=== PATIENT | female | born 1965 | race Caucasian/White ===

== ENCOUNTER 2017-11-30 07:23 | Day surgery (SDC) | payer MEDICARE, OTHER ==
[~2017-11-30 07:23] MED LIST: PROPOFOL INJ 200 MG/20 ML VIAL IV ONE
[2017-11-30 09:01] VITALS: BP 137/76
--- NOTE | 2017-11-30 14:32 | Operative Report ---
Operative Report DATE OF SURGERY: 11/30/17 Operative Report: The risks, benefits and alternatives of the procedure including risks of bleeding, perforation requiring surgery are explained to the patient in detail and informed consent was obtained. Patient was taken back to the endoscopy suite and placed in a left, lateral decubital position. Timeout was called. Propofol medications administered. A rectal examination is done which did not reveal any masses, tears or fissures. An Olympus videoscope was inserted into the patient's rectum. The scope was then carefully advanced all the way to the cecum. The cecum was identified by the usual anatomical landmarks including the ileocecal valve as well as the appendiceal office. Photodocumentation was obtained. The scope was then sequentially pulled back via the various segments of the colon including the ascending colon, hepatic flexure, transverse colon, splenic flexure, descending colon and finding to the rectosigmoid portions of the colon. Retroflexion maneuvers performed. PREOPERATIVE DIAGNOSIS: Colorectal cancer screening. POSTOPERATIVE DIAGNOSIS: Deep intubation of the cecum could not be performed. Mild right-sided inflammation status post biopsy rule out lymphocytic, microscopic, collagenous colitis. Internal hemorrhoids. Redundancy of colon OPERATION: Colonoscopy with biopsy SURGEON: LATA CALLAHAN ANESTHESIA: LMAC TISSUE REMOVED OR ALTERED: As noted above. COMPLICATIONS: None. ESTIMATED BLOOD LOSS: None. INTRAOPERATIVE FINDINGS: As noted above. PROCEDURE: Patient tolerated procedure well. No immediate postprocedure complications are noted. Patient discharged in good condition. Discharge date 11/30/2017. Discharge diet: Regular. Discharge activity: Regular. 2-3 week follow-up to discuss findings. Patient is instructed call the office or proceed to the emergency room should there be any further problems or questions. We will wait on pathology. 5-7 year surveillance colonoscopy.
== END 2017-11-30 09:05 | disposition home or self-care (01) ==
LOC: END 07:23
PROVIDERS: ATTEND Internal Medicine Gastroenterology
PROC: 0DBF8ZX Excision of Right Large Intestine, Via Natural or Artificial Opening Endoscopic, Diagnostic (ICD-10-PCS; principal; 2017-11-30 08:00)
DX: Z12.11 Encounter for screening for malignant neoplasm of colon (principal); K52.9 Noninfective gastroenteritis and colitis, unspecified; K64.8 Other hemorrhoids; E78.2 Mixed hyperlipidemia; I10 Essential (primary) hypertension; E11.9 Type 2 diabetes mellitus without complications; E66.01 Morbid (severe) obesity due to excess calories; Z68.41 Body mass index [BMI] 40.0-44.9, adult; Z87.891 Personal history of nicotine dependence; Z79.51 Long term (current) use of inhaled steroids; Z79.899 Other long term (current) drug therapy; Z68.38 Body mass index [BMI] 38.0-38.9, adult; Z79.4 Long term (current) use of insulin
CPT/HCPCS: 45380; 88305 ×2; J2704; 812

== ENCOUNTER 2018-12-23 14:56 | Emergency (ER) | payer MEDICARE, OTHER ==
[2018-12-23 15:49] VITALS: BP 165/74
[2018-12-23] MEDS ORDERED: NORMAL SALINE 1000 ML 1,000 ML IV ONE (16:57)
--- NOTE | 2018-12-23 16:58 | ER Document Report ---
ED Medical Screen (RME) - General Chief Complaint: Abdominal Pain Stated Complaint: FALL/WRIST PAIN Time Seen by Provider: 12/23/18 16:49 Primary Care Provider: BROOK CROCKER MD [Primary Care Provider] - Follow up as needed TRAVEL OUTSIDE OF THE [place] IN LAST 30 DAYS: No - HPI Notes: 12/23/18 17:06 53-year-old female presents to the ED for complaints of right upper quadrant abdominal pain that has been occurring recently for the last week and has radiated to her back. has had episodes of nausea and did vomit once. last bowel movement was yesterday. Patient reports she did have a gastric sleeve done a year ago in [place], [place]. Denies any fevers or chills. cholecystectomy x8 years ago. Patient reports she fell 4 days ago, injured her right wrist. has not tried anything [id number] for pain. pain with flexion of wrist. Is a patient of Dr. Crocker at [facility] I have greeted and performed a rapid initial assessment of this patient. A comprehensive ED assessment and evaluation of the patient, analysis of test results and completion of medical decision making process will be conducted by an additional ED providers. - Related Data Allergies/Adverse Reactions: No Known Drug Allergies Allergy (Verified 11/30/17 07:13) Past Medical History - Past Medical History Cardiac Medical History: Reports: Hx Hypercholesterolemia, Hx Hypertension - MEDS Denies: Hx Coronary Artery Disease, Hx Heart Attack Pulmonary Medical History: Reports: Hx Asthma - FLARE UPS WHEN SICK, NO REGULAR MEDS Denies: Hx Bronchitis, Hx COPD, Hx Pneumonia, Hx Tuberculosis Neurological Medical History: Denies: Hx Cerebrovascular Accident, Hx Seizures Endocrine Medical History: Reports: Hx Diabetes Mellitus Type 2 Renal/ Medical History: Reports: Hx Kidney Stones Musculoskeltal Medical History: Reports Hx Arthritis - RA- GENERALIZED, Reports Hx Musculoskeletal Deformity, Reports Hx Musculoskeletal Trauma Psychiatric Medical History: Reports: Hx Anxiety, Hx Depression Past Surgical History: Reports: Hx Cardiac Catheterization, Hx Section - x 5, Hx Cholecystectomy, Hx Gastric Bypass Surgery - gastric sleeve, Hx Hysterectomy. Denies: Hx Pacemaker - Immunizations Immunizations up to date: No Hx Diphtheria, Pertussis, Tetanus Vaccination: No Influenza Administration Date for 07/2017 - 12/2017 Season: 07/06/17 Physical Exam - Vital signs Vitals: Temp Pulse Resp BP Pulse Ox 98.1 F 51 L 20 165/74 H 93 12/23/18 15:48 12/23/18 15:48 12/23/18 15:48 12/23/18 15:48 12/23/18 15:48 - Abdominal Tenderness: Tender - RUQ, no cva tenderness bilat - Extremities Wrist: Tender - medial aspect, + snuffbox tenderness Course - Vital Signs Vital signs: Temp Pulse Resp BP Pulse Ox 98.1 F 51 L 20 165/74 H 93 12/23/18 15:48 12/23/18 15:48 12/23/18 15:48 12/23/18 15:48 12/23/18 15:48 Doctor's Discharge - Discharge Referrals: BROOK CROCKER MD [Primary Care Provider] - Follow up as needed
--- NOTE | 2018-12-23 17:39 | RADIOLOGY REPORT (SQ) ---
EXAM DESCRIPTION: WRIST RIGHT 3 VIEWS COMPLETED DATE/TIME: 12/23/2018 5:21 pm REASON FOR STUDY: fell on R wrist x 4 days ago diffuse right wrist pain COMPARISON: None. NUMBER OF VIEWS: Three views. TECHNIQUE: AP, lateral, and oblique radiographic images acquired of the right wrist. LIMITATIONS: None. FINDINGS: MINERALIZATION: Normal. BONES: No acute fracture or dislocation. No worrisome bone lesions. Normal alignment. SOFT TISSUES: No soft tissue swelling. No foreign body. OTHER: No other significant finding. IMPRESSION: NEGATIVE STUDY OF THE RIGHT WRIST. NO RADIOGRAPHIC EVIDENCE OF ACUTE INJURY. TECHNICAL DOCUMENTATION: JOB ID: [id number] [employer]- All Rights Reserved Reading location - IP/workstation name: [email or web address]
[2018-12-23 18:18] LABS: ABSOLUTE BASOPHILS # (AUTO) 0.1 10^3/uL (0.0-0.2); ABSOLUTE EOSINOPHILS # (AUTO) 0.3 10^3/uL (0.0-0.6); ABSOLUTE LYMPHOCYTES (AUTO) 3.3 10^3/uL (0.5-4.7); ABSOLUTE MONOCYTES (AUTO) 0.6 10^3/uL (0.1-1.4); ABSOLUTE NEUT (AUTO) 4.8 10^3/uL (1.7-8.2); BASOPHILS % (AUTO) 0.7 % (0-2); EOSINOPHILS % (AUTO) 3.5 % (0-6); HEMATOCRIT 42.6 % (36.0-47.0); HEMOGLOBIN 14.7 g/dL (12.0-15.5); LYMPHOCYTES % (AUTO) 36.2 % (13-45); MEAN CORPUSCULAR HEMOGLOBIN 31.4 pg (27.0-33.4); MEAN CORPUSCULAR HGB CONC 34.5 g/dL (32.0-36.0); MEAN CORPUSCULAR VOLUME 91 fl (80-97); MONOCYTES % (AUTO) 6.9 % (3-13); PLATELET COUNT 232 10^3/uL (150-450); RED BLOOD COUNT 4.68 10^6/uL (3.72-5.28); RED CELL DISTRIBUTION WIDTH 13.2 % (11.5-14.0); SEGMENTED NEUTROPHILS % (AUTO) 52.7 % (42-78); TOTAL CELLS COUNTED % (AUTO) 100 %; WHITE BLOOD COUNT 9.2 10^3/uL (4.0-10.5)
[2018-12-23 18:29] LABS: APPEARANCE,URINE SLIGHTLY-CLOUDY; BILIRUBIN,URINE NEGATIVE (NEGATIVE); COLOR,URINE YELLOW; GLUCOSE, URINE NEGATIVE (NEGATIVE); KETONES,URINE NEGATIVE (NEGATIVE); LEUKOCYTE ESTERASE,URINE SMALL (NEGATIVE); NITRITE,URINE NEGATIVE (NEGATIVE); PROTEIN,URINE NEGATIVE (NEGATIVE); URINE SPECIFIC GRAVITY 1.019
[2018-12-23 18:36] LABS: ALANINE AMINOTRANSFERASE 31 U/L (9-52); ALBUMIN 4.5 g/dL (3.5-5.0); ALKALINE PHOSPHATASE 65 U/L (38-126); ANION GAP 9 (5-19); ASPARTATE AMINO TRANSFERASE 22 U/L (14-36); BILIRUBIN,DIRECT 0.2 mg/dL (0.0-0.4); BILIRUBIN,TOTAL 0.7 mg/dL (0.2-1.3); BLOOD UREA NITROGEN 16 mg/dL (7-20); CALCIUM 10.4 mg/dL (8.4-10.2); CARBON DIOXIDE 30 mmol/L (22-30); CHLORIDE 103 mmol/L (98-107); GLUCOSE 84 mg/dL (75-110); LIPASE 138.1 U/L (23-300); POTASSIUM 4.3 mmol/L (3.6-5.0); SODIUM 141.9 mmol/L (137-145); TOTAL PROTEIN 7.7 g/dL (6.3-8.2)
--- NOTE | 2018-12-23 19:29 | RADIOLOGY REPORT (SQ) ---
EXAM DESCRIPTION: U/S ABDOMEN LIMITED W/O DOP COMPLETED DATE/TIME: 12/23/2018 7:17 pm REASON FOR STUDY: RUQ abd tenderness with n/v COMPARISON: None. TECHNIQUE: Dynamic and static grayscale images acquired of the abdomen and recorded on PACS. Additio nal selected color Doppler and spectral images recorded. LIMITATIONS: None. FINDINGS: PANCREAS: Head and body normal. Tail was not well seen. LIVER: No masses. Echotexture normal. LIVER VASCULATURE: Normal directional flow of the main portal vein and hepatic veins. GALLBLADDER: Surgically absent. ULTRASOUND-DETECTED MEREDITH'S SIGN: Not applicable. INTRAHEPATIC DUCTS AND COMMON DUCT: CBD 7 mm, intrahepatic ducts normal caliber. No filling defects. INFERIOR VENA CAVA: Not imaged. AORTA: No aneurysm. RIGHT KIDNEY: Normal size 9.1 cm. Normal echogenicity. No solid or suspicious masses. No hydronephro sis. No calcifications. PERITONEAL AND RIGHT PLEURAL SPACE: No ascites or effusions. OTHER: No other significant findings. IMPRESSION: Normal postcholecystectomy ultrasound of the right upper quadrant. TECHNICAL DOCUMENTATION: JOB ID: [id number] [employer]- All Rights Reserved Reading location - IP/workstation name: [email or web address]
--- NOTE | 2018-12-23 19:48 | ER Document Report ---
ED General - General Chief Complaint: Abdominal Pain Stated Complaint: FALL/WRIST PAIN Time Seen by Provider: 12/23/18 16:49 Primary Care Provider: BROOK CROCKER MD [Primary Care Provider] - Follow up as needed Mode of Arrival: Ambulatory Information source: Patient TRAVEL OUTSIDE OF THE [place] IN LAST 30 DAYS: No - HPI Patient complains to provider of: Right wrist injury, abdominal tearing sensation Onset: Last week Onset/Duration: Sudden Severity: Moderate Pain Level: 3 Associated symptoms: None Exacerbated by: Movement Relieved by: Denies Similar symptoms previously: No Recently seen / treated by doctor: No Notes: 53-year-old female here with right wrist injury. Had a fall onto outstretched hand today. She has been having some tearing left-sided abdominal pain which is not accompanied by fever or vomiting. No diarrhea. - Related Data Allergies/Adverse Reactions: No Known Drug Allergies Allergy (Verified 11/30/17 07:13) Past Medical History - General Information source: Patient - Social History Smoking Status: Current Every Day Smoker Chew tobacco use (# tins/day): No Frequency of alcohol use: None Drug Abuse: None Family History: None, Reviewed & Not Pertinent, Hypertension Patient has suicidal ideation: No Patient has homicidal ideation: No - Past Medical History Cardiac Medical History: Reports: Hx Hypercholesterolemia, Hx Hypertension - MEDS Denies: Hx Coronary Artery Disease, Hx Heart Attack Pulmonary Medical History: Reports: Hx Asthma - FLARE UPS WHEN SICK, NO REGULAR MEDS Denies: Hx Bronchitis, Hx COPD, Hx Pneumonia, Hx Tuberculosis Neurological Medical History: Denies: Hx Cerebrovascular Accident, Hx Seizures Endocrine Medical History: Reports: Hx Diabetes Mellitus Type 2 Renal/ Medical History: Reports: Hx Kidney Stones. Denies: Hx Peritoneal Dialysis Musculoskeletal Medical History: Reports Hx Arthritis - RA- GENERALIZED, Reports Hx Musculoskeletal Deformity, Reports Hx Musculoskeletal Trauma Psychiatric Medical History: Reports: Hx Anxiety, Hx Depression Past Surgical History: Reports: Hx Cardiac Catheterization, Hx Section - x 5, Hx Cholecystectomy, Hx Gastric Bypass Surgery - gastric sleeve, Hx Hysterectomy. Denies: Hx Pacemaker - Immunizations Immunizations up to date: No Hx Diphtheria, Pertussis, Tetanus Vaccination: No Review of Systems - Review of Systems Notes: Constitutional: No fevers. No chills. EENT: No eye redness. No eye pain. No ear pain. No sore throat. Cardiovascular: No chest pain. No palpitations. Respiratory: No cough. No shortness of breath. No respiratory distress. Gastrointestinal: Positive abdominal pain. No nausea, vomiting, or diarrhea. Genitourinary: Atraumatic. No lesions. No pain. No discharge. Musculoskeletal: Atraumatic. Positive right wrist pain Skin: No rash or lesions. Lymphatic: No swollen lymph nodes. Neurologic: No headache. No syncope. Psychiatric: No suicidal or homicidal ideation. Physical Exam - Vital signs Vitals: Temp Pulse Resp BP Pulse Ox 98.1 F 51 L 20 165/74 H 93 12/23/18 15:48 12/23/18 15:48 12/23/18 15:48 12/23/18 15:48 12/23/18 15:48 - Notes Notes: General: Well-developed, well-nourished. In no acute distress. Non-toxic appearing. Cardiac: Well-perfused. Regular rate and rhythm. No murmurs, rubs, or gallops. Pulmonary: No respiratory distress. No cyanosis. Bilateral lung fiels are clear to auscultation. Abdominal: Non-distended. Non-rigid. Bowels sounds are present in all four quadrants. No guarding or rebound. HEENT: Head is atraumatic. Conjunctivae not reddened. No tearing. PERRL. EOMI. Orbits atraumatic. No periorbital swelling or erythema. Oropharynx is without erythema, swelling, or exudates. Neck: Supple. No adenopathy. No meningismus. Dermatologic: Warm with good turgor. No rash. Atraumatic. Chest: Atraumatic. No chest wall tenderness to palpation. Musculoskeletal: Diffuse tenderness to the right wrist. No swelling or vomiting. No bruising. No abrasions. Full flexion and extension. Distal neurovascular exam is intact. There is no snuffbox tenderness of the right wrist. Genitourinary: Examination deferred Neurologic: No gross neurologic deficits. Psychiatric: Normal mood. Course - Re-evaluation Re-evalutation: 12/23/18 19:45 Patient's labs are reassuring. She does not have an elevated white count. Her urinalysis does not show a UTI. Her wrist x-ray was negative. Her abdominal ultrasound was negative. I suggested given all of her abdominal surgeries that we get a scan of her abdomen. Patient prefers to hold off on the CT scan to see if the pain will get better. I agreed to this plan given that everything else looks pretty normal. She knows to return if the pain gets worse, develops fever, develops vomiting. She does not want any pain medication at discharge. Requesting a splint for her right wrist - Vital Signs Vital signs: Temp Pulse Resp BP Pulse Ox 98.1 F 51 L 20 165/74 H 93 12/23/18 15:48 12/23/18 15:48 12/23/18 15:48 12/23/18 15:48 12/23/18 15:48 - Laboratory Result Diagrams: 12/23/18 17:21 12/23/18 17:21 Laboratory results interpreted by me: 12/23/18 12/23/18 17:21 17:21 Est GFR (Non-Af Amer) 51 L Calcium 10.4 H Urine Urobilinogen 2.0 H Ur Leukocyte Esterase SMALL H Urine Ascorbic Acid 40 H Discharge - Discharge Clinical Impression: Right wrist sprain Qualifiers: Encounter type: initial encounter Qualified Code(s): S63.501A - Unspecified sprain of right wrist, initial encounter Abdominal pain Qualifiers: Abdominal location: generalized Qualified Code(s): R10.84 - Generalized abdominal pain Condition: Good Disposition: HOME, SELF-CARE Instructions: Abdominal Pain ([facility]), Wrist Sprain ([facility]) Additional Instructions: Wear the wrist splint for the next week or so. If it does not get any better please follow-up with orthopedics. Also be sure to return to the emergency department if you develop worsening abdominal pain, nausea or vomiting, fevers or shaking chills. This could be a sign of something more serious Referrals: BROOK CROCKER MD [Primary Care Provider] - Follow up as needed
== END 2018-12-23 20:05 | disposition home or self-care (01) ==
LOC: ER 14:56
DX: S63.501A Unspecified sprain of right wrist, initial encounter (principal); R10.84 Generalized abdominal pain; W01.0XXA Fall on same level from slipping, tripping and stumbling without subsequent striking against object, initial encounter; F17.200 Nicotine dependence, unspecified, uncomplicated; E78.00 Pure hypercholesterolemia, unspecified; I10 Essential (primary) hypertension; E11.9 Type 2 diabetes mellitus without complications; Z87.442 Personal history of urinary calculi; Z90.49 Acquired absence of other specified parts of digestive tract; Z98.84 Bariatric surgery status; Z90.710 Acquired absence of both cervix and uterus
CPT/HCPCS: 99284; 96360; 36415; 83690; 85025; 80053; 81001; 73110; 76705; L3908; J7030